=== PATIENT | male | born 2005 | race Two or more races ===

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

== ENCOUNTER 2024-07-17 22:33 | Emergency (ER) | payer MEDICAID ==
[~2024-07-17] VITALS: Ht 172.7 cm; Wt 108.9 kg
[2024-07-17 22:47] VITALS: BP 161/90; PULSE 89; RESP 18; O2SAT 98
== END 2024-07-17 23:16 | disposition left against medical advice (07) ==
LOC: ER 22:33 → EDBD 22:33 → ER 23:16
DX: F41.9 Anxiety disorder, unspecified (principal); Z53.21 Procedure and treatment not carried out due to patient leaving prior to being seen by health care provider